=== PATIENT | male | born 2000 | race Caucasian/White ===

== ENCOUNTER 2023-12-17 22:00 | Emergency (ER) | payer MEDICAID, SELFPAY ==
[2023-12-17 22:05] VITALS: BP 141/85; PULSE 67; RESP 20; TEMP 36.1; O2SAT 95; BMI 29.0
--- NOTE | 2023-12-17 22:15 | CRLHL7_ITS ---
For Patients: As a result of the Century Cures Act, medical imaging exams and procedure reports are released immediately into your electronic medical record. You may view this report before your referring provider. If you have questions, please contact your health care provider. INDICATION: Left flank pain. TECHNIQUE: CT of the abdomen and pelvis without IV contrast. Coronal and sagittal reconstructions. COMPARISON: None. FINDINGS: The unenhanced liver, gallbladder, spleen, pancreas, and adrenal glands are normal in appearance. No biliary dilation. There is a 2 mm obstructing stone in the distal left ureter just above the ureterovesicular junction, with mild upstream left hydroureteronephrosis (series 2, image 144). No right hydronephrosis or ureteral dilation. Underdistended urinary bladder. A tiny calcification is noted along the anterior bladder wall. Nonenlarged prostate gland. No small bowel dilation. Mild amount of stool in the proximal colon. The distal colon is decompressed. Negative appendix. No intraperitoneal free air or fluid. No lymphadenopathy. The lung bases are clear. The bones are unremarkable. IMPRESSION: 2 mm obstructing stone in the distal left ureter with mild left hydroureteronephrosis. Please note that all CT scans at this facility use dose modulation, iterative reconstruction, and/or weight-based dosing when appropriate to reduce radiation dose to as low as reasonably achievable. Dictated by Yvette Lin MD @ 12/17/2023 11:23:19 PM (Electronically Signed)
--- NOTE | 2023-12-17 22:16 | ED_ITS ---
HPI - Abdominal Pain General Chief Complaint: Abdominal Pain Stated Complaint: left sided back pain Time Seen by Provider: 12/17/23 22:03 History of Present Illness HPI narrative: Patient is a 23-year-old gentleman who comes in today with left flank pain. The pain started this afternoon proximally 4-5 hours ago. It is located in the left CVA. He has had no dysuria no hematuria no nausea no vomiting no fevers no chills no chest pain no shortness of breath. He has had no similar symptoms previously. No other problems have been noted Related Data Previous Rx's ?Medication ?Instructions ?Recorded tamsulosin 0.4 mg capsule (Flomax) 0.4 mg PO DAILY #14 caps 12/17/23 Allergies Allergy/AdvReac Type Severity Reaction Status Date / Time No Known Drug Allergies Allergy Verified 12/17/23 22:09 Review of Systems Status of ROS Reports: 10 or more systems reviewed and unremarkable except as noted in History and below PFSH PFS Social History Smoking Status: Never smoker Do you use any of these nicotine containing products: None Second hand tobacco smoke exposure: No How often do you have a drink containing alcohol: monthly or less How many standard drinks containing alcohol do you have on a typical day: 1 or 2 How often do you have six or more drinks on one occasion: Never AUDIT-C Alcohol total score: 1 Non-prescribed substance use: denies use service: No Exam Narrative: Exam Narrative: EXAM GENERAL: Patient appears comfortable and well. EYES: No scleral icterus. LYMPH: No supraclavicular or cervical lymphadenopathy. SKIN: Visible skin seen during exam normal or with benign process only. EXT: No dependent lower extremity pedal edema. HEART: Regular rate and rhythm with no murmurs, rubs, or gallops. LUNGS: Clear to auscultation bilaterally with no crackles or wheezes. ABD: Soft, non tender, non distended. PSYCH: Good eye contact, speech is not pressured. Const: Vital Signs, click to edit/add: Vital Signs - 24 hr 12/17/23 22:05 12/17/23 23:19 Temperature 97 F L Pulse Rate [Pulse Oximeter] 67 81 Respiratory Rate 20 16 Blood Pressure [Ri ght Upper Arm] 141/85 H 130/85 Pulse Oximetry 95 100 Oxygen Delivery Me thod Room Air Room Air Course Course ED Course: Patient seen and examined. UA CBC basic metabolic panel CT abdomen pelvis ordered. Normal saline given Toradol given Zofran given. Vital Signs Vital signs: Initial Vital Signs Temperature 97 F L 12/17/23 22:05 Temperature Source Temporal Artery Scan 12/17/23 22:05 Pulse Rate 67 12/17/23 22:05 Respiratory Rate 20 12/17/23 22:05 Blood Pressure 141/85 H 12/17/23 22:05 Blood Pressure Mean 103 12/17/23 22:05 Blood Pressure Position Sitting 12/17/23 22:05 Pulse Oximetry 95 12/17/23 22:05 Oxygen Delivery Method Room Air 12/17/23 22:05 Vital Signs Temperature 97 F L 12/17/23 22:05 Pulse Rate 67 12/17/23 22:05 Respiratory Rate 20 12/17/23 22:05 Blood Pressure 141/85 H 12/17/23 22:05 Pulse Oximetry 95 12/17/23 22:05 Oxygen Delivery Method Room Air 12/17/23 22:05 Temperature 97 F L 12/17/23 22:05 Pulse Rate 81 12/17/23 23:19 Respiratory Rate 16 12/17/23 23:19 Blood Pressure 130/85 12/17/23 23:19 Pulse Oximetry 100 12/17/23 23:19 Oxygen Delivery Method Room Air 12/17/23 23:19 Medications Administered Medications: Generic Name Dose Route Start Last Admin Trade Name Freq PRN Reason Stop Dose Admin Hydromorphone HCl 0.5 mg 12/17/23 23:11 12/17/23 23:19 Hydromorphone 0.5 Mg/0.5 Ml Inj IVP 12/17/23 23:12 0.5 mg ONCE ONE Administration Ondansetron HCl 4 mg 12/17/23 22:15 12/17/23 22:37 Ondansetron 2 Mg/Ml Inj IVP 4 mg ONCE PRN Administration Discontinued Medications Generic Name Dose Route Start Last Admin Trade Name Freq PRN Reason Stop Dose Admin Sodium Chloride 1,000 mls @ 1,000 mls/hr 12/17/23 22:15 12/17/23 22:37 0.9 % Sodium Chloride 1000 Ml IV 12/17/23 23:14 1,000 mls/hr .Q1H GRANT Administration Ketorolac Tromethamine 30 mg 12/17/23 22:15 12/17/23 22:37 Ketorolac 30 Mg/Ml Inj IVP 12/17/23 22:16 30 mg ONCE ONE Administration MDM - Abdominal Pain MDM Narrative Medical decision making narrative: Patient is a 23-year-old gentleman who presents with left flank pain. Evaluation shows hematuria without signs of infection. He has 2 mm stone in the left ureter on CT scan no other acute abnormalities. He is treated with normal saline Zofran and Toradol and Dilaudid with resolution of his symptoms. He will be discharged home with oxycodone Zofran and Flomax to drink plenty fluids screen is urine and follow-up with his primary physician next week. Lab Data Labs: Lab Results 12/17/23 12/17/23 Range/Units 22:12 22:33 WBC 12.80 H (4.50-11.00) K/uL RBC 5.15 (4.30-5.90) m/uL Hgb 15.0 (13.5-17.5) gm/dL Hct 43.3 (37.0-53.0) % MCV 84 (80-100) fL MCH 29 (26-34) pg MCHC 35 (32-36) gm/dL RDW Coeff of Kamron 12.0 (11.5-15.5) % Plt Count 207 (140-440) K/uL Neut % (Auto) 77.1 H (42.0-72.0) % Lymph % (Auto) 15.1 L (20-44) % Sequoyah % (Auto) 6.3 (0.0-11.0) % Eos % (Auto) 0.5 (0.0-7.0) % Baso % (Auto) 0.2 (0.0-3.0) % Neut # (Auto) 9.90 H (1.7-7.0) K/uL Lymph # (Auto) 1.90 (0.90-2.90) K/uL Sequoyah # (Auto) 0.80 (0.00-0.90) K/UL Eos # (Auto) 0.10 (0.00-0.50) K/uL Baso # (Auto) 0.00 (0.00-0.30) K/uL Abs Immat Gran (auto) 0.10 (0.00-0.30) K/uL Imm/Tot Granulo (auto) 0.8 % Sodium 137 (135-149) mmol/L Potassium 3.4 L (3.6-5.1) mmol/L Chloride 104 (96-114) mmol/L Carbon Dioxide 21 (20-32) mmol/L Anion Gap 12 (7-15) mEq/L BUN 13 (5-24) mg/dL Creatinine 1.0 (0.5-1.5) mg/dL Estimated Creat Clear 127.62 Estimated GFR 107 ml/min Glucose 156 H (60-115) mg/dL Calcium 9.5 (8.4-10.6) mg/dL Urine Color Yellow (Yellow) Urine Appearance Clear (Clear) Urine pH 6.5 (5.0-8.5) Ur Specific [place] >= 1.030 (1.000-1.030) Urine Protein 1+ A (Negative) Urine Glucose (UA) Negative (Negative) Urine Ketones Trace A (Negative) Urine Blood 3+ A (Negative) Urine Nitrite Negative (Negative) Urine Bilirubin 1+ A (Negative) Urine Urobilinogen 0.2 (0.2-1.0) Ur Leukocyte Esterase Negative (Negative) Urine RBC 5-10 A (0-2) Urine WBC 2-5 (0-5) Ur Squamous Epith Cells Few (None-Few) Urine Bacteria Few A (None) Urine Yeast Few A (None) Discharge Plan Discharge Clinical Impression: Calculus of kidney Patient Disposition: Home, Self-Care Condition: Stable Instructions: Kidney Stones (ED) Additional Instructions: Strain urine Oxycodone Tylenol Rest Fluids Zofran for nausea Flomax as directed. Activity Level: No Restrictions Discharge Diet: Regular Prescriptions: New tamsulosin [Flomax] 0.4 mg capsule 0.4 mg PO DAILY Qty: 14 3RF Follow Up/Referrals: Kai Josue MD [Primary Care Provider] - Stand Alone Forms: MyHealth Info Instructions
[2023-12-17 22:36] LABS: Appearance Urine Clear (Clear); Bilirubin Urine 1+ (Negative); Blood Urine 3+ (Negative); Color Urine Yellow (Yellow); Glucose Urine Negative (Negative); Ketones Urine Trace (Negative); Leukocyte Esterase Urine Negative (Negative); Nitrite Urine Negative (Negative); Protein Urine 1+ (Negative); Specific Gravity Urine >= 1.030 (1.000-1.030); Urobilinogen Urine 0.2 (0.2-1.0); pH Urine 6.5 (5.0-8.5)
[2023-12-17] MEDS: 0.9 % SODIUM CHLORIDE 1000 ml 1,000 ML IV (22:37)
[2023-12-17] MEDS: KETOROLAC 30 MG/ML inj IVP (22:37)
[2023-12-17] MEDS: ONDANSETRON 2 MG/ML inj 4 MG IVP (22:37)
[2023-12-17 22:41] LABS: Basophils Percent Auto 0.2 % (0.0-3.0); Eosinophils Percent Auto 0.5 % (0.0-7.0); Hematocrit 43.3 % (37.0-53.0); Immature Granulocytes Pct Auto 0.8 %; Lymphocytes Percent Auto 15.1 % (20-44); Mean Corpuscular HGB Conc 35 gm/dL (32-36); Mean Corpuscular Hemoglobin 29 pg (26-34); Mean Corpuscular Volume 84 fL (80-100); Monocytes Percent Auto 6.3 % (0.0-11.0); Neutrophils Percent Auto 77.1 % (42.0-72.0); Platelet Count* 207 K/uL (140-440); Red Blood Count 5.15 m/uL (4.30-5.90)
[2023-12-17 22:51] LABS: Slide Review Reflex No
[2023-12-17 22:56] LABS: Chloride* 104 mmol/L (96-114)
[2023-12-17 22:57] LABS: Potassium* 3.4 mmol/L (3.6-5.1); Sodium* 137 mmol/L (135-149)
[2023-12-17 22:59] LABS: Est. Creatinine Clearance* 127.62; Estimated Glomerular Filt Rate 107 ml/min
[2023-12-17 23:00] LABS: Anion Gap 12 mEq/L (7-15); Blood Urea Nitrogen* 13 mg/dL (5-24); Calcium* 9.5 mg/dL (8.4-10.6); Carbon Dioxide* 21 mmol/L (20-32); Glucose* 156 mg/dL (60-115)
[2023-12-17 23:02] LABS: Bacteria Urine Few; Squamous Epithelial Cell Urine Few (None-Few)
[2023-12-17 23:19] VITALS: BP 130/85; PULSE 81; RESP 16; O2SAT 100
[2023-12-17] MEDS: HYDROmorphone 0.5 mg/0.5 ml inj IVP (23:19)
== END 2023-12-17 23:51 | disposition home or self-care (01) ==
PROVIDERS: Emergency Provider Internal Medicine; PCP Family Medicine
DX: N20.0 Calculus of kidney (principal)
CPT/HCPCS: 36415; 74176; 80048; 81001; 81003; 85025; 87086; 96374; 96375; 99283; 99284; J1170; J1885; J2405; J7030

== ENCOUNTER 2024-11-14 09:26 | Emergency (ER) | payer BC, SELFPAY ==
--- OUTSIDE RECORDS SUMMARY | 2024-11-14 09:28 | XMS_ITS | Clinical Summary ---
Author Organization [facility] Address [address] [place] [id number] Care Team Providers Care Visiting Professor Name Role Phone Kai Josue MD Primary Care Provider [phone] Allergies No known active allergies Medications No known medications Active Problems Problem Noted Date Diagnosed Date Genu valgum 07/01/2010 DERMATITIS, OTHER ATOPIC Immunizations Immunization Administration Dates Next Due DTP 1998,1998 DTaP 05/26/2003,09/02/1999,1998 HIB-HepB (Comvax) 06/06/1999,1998,07/18/18 99 Hepatitis A (Peds) 01/02/2017,04/20/2012 Inactivated Polio Vaccine 02/05/2004,,1998,07/18 Influenza,LAIV4 Live Intrana millicent (Flumist) 03/31/2009 MENINGOCOCCAL VACCINE 2 VIAL [id number] (MENVEO) 01/02/2017,04/20/2012 MMR 05/26/2003,09/02/1999 Tdap 03/11/2024,01/31/2011 Varicella Vaccine 06/06/1999 Family History Medical History Relation Name Comments Good Health Brother Good Health Father Good Health Mother Genetic Other negative Relation Name Status Comments Brother Father Mother Other Social History Tobacco Use Types Packs/Day Years Used Date Smoking Tobacco: Never Smokeless Tobacco: Never Tobacco Cessation:Counseling Given: No Alcohol Use Standard Drinks/Week Comments Not Currently 0 (1 standard drink = 0.6 oz pur e alcohol) 5 times per year Social Connections Answer Date Recorded Do you often feel lonely or isolated from those around you? 0 03/11/2024 Alcohol Use Answer Date Recorded How often do you have a drink containing alcohol ? 1 03/11/2024 How many drinks containing a lcohol do you have on a typical day when you are drinking? 0 03/11/2024 How often do you have five or more drinks on one occasion? 0 03/11/2024 Financial Resource Strain Answer Date R ecorded Difficulty of Paying Living Expenses 2 03/11/2024 Difficulty of Paying Living Expenses 1 03/11/2024 Food Insecurity Answer Date Recorded Do you worry your food will run out before you are able to buy more? 1 03/11/2024 Transportation Needs Answer Date Record ed Does lack of transportation keep you from medica l appointments? 1 03/11/2024 Does lack of transportation keep you from work, meetings or getting things that you need? 1 03/11/2024 Housing Stability Answer Date Recorded What is your housing situation today? 1 03/11/2024 Utilities Answer Date Recorded Do you have trouble paying f or utilities (for example, heat, electricity, water, phone)? 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 Not on file Not on f ile Obstetrics History Last Filed Vital Signs Vital Sign Reading Time Taken Comments Blood Pressure 119/75 03/11/2024 8:51 AM CDT Pulse 66 03/11/2024 8:51 AM CDT Temperature 36.1 C (97 F) 03/11/2024 8:51 AM CDT Respiratory Rate 16 2002 12:00 AM TRADE MANAGER Oxygen Saturation 98% 03/11/2024 8:51 AM CDT Inhaled Oxygen Concentration - - Weight 97.8 kg (215 lb 9.6 oz) 03/11/2024 8:51 A M CDT Height 183.6 cm (6' 0.28) 03/11/2024 8:51 AM CD T Body Mass Index 29.01 03/11/2024 8:51 AM CDT Plan of Treatment Health Maintenance Due Date Last Done Comments HPV series for age 9-26 (1 - 3-dose series) 2013 HPV series for age 9-26 (1 - 3-dose series) 2013 Depression screening for age 12+ 01/02/2018 01/02/2017, 06/16/2016 Pap test for age 21-65 2019 COVID-19 vaccine series ( season) 2024 Influenza Vaccine (Season Ended) 2025 03/31/2009 BMI (ht and wt on same day) for age 18+ 03/11/2025 03/11/2024, 01/02/2017, 06/16/2016 Tetanus booster 03/11/2034 03/11/2024, 01/31/2011 Hepatitis B series for 19+ Completed 06/06, 1998, 1998 HIV for age 15-65 Completed 03/11/2024 Hepatitis C screening for ag e 18-79 Completed 03/11/2024 Tdap Completed 03/11/2024, 01/31/2011 Pneumococcal series for age 6-49 Aged Out No longer eligible b ased on patient's age to complete this topic Procedures Procedure Name Priority Date/Time Associated Diagnosis Comments HIV 1/2 ANTIGEN/ANTIBODY FOURTH GENERATION W/RFL ([facility]) Routine 03/11/2024 10:03 AM CDT Encounter for screening for HIV ANTI HCV Routine 03/11/2024 10:03 AM CDT Need for hepatitis C screening test from Last 3 Months or Most Recently Relevant to Health Maintenance Results * HIV 1/2 AG/AB 4TH GEN W/RFL ([facility]) (03/11/2024 10:03 AM CDT) HIV AG/AB, 4TH GEN NON-REACT OSBALDO NON-REACT [facility] Comment: HIV-1 antigen and HIV-1/HIV-2 antibodies were not detected. There is no laboratory evidence of HIV infection. PLEASE NOTE: This information has been disclosed to you from records whose confidentiality may be protected by state law. If your state requires such protection, then the state law prohibits you from making any further disclosure of the information without the specific written consent of the person to whom it pertains, or as otherwise permitted by law. A general authorization for the release of medical or other information is NOT sufficient for this purpose. For additional information please refer to http://Staples.Patients Know Best/faq/VIR375 (This link is being provided for informational/ educational purposes only.) The performance of this assay has not been clinically validated in patients less than 2 years old. Blood BLOOD SPECIMEN / Unknown 03/11/2024 10:03 AM CDT 03/11/2024 10:04 AM CDT Kai Josue MD SEND OUTS Final Resu lt Performing Organization Address [facility]/ZIP Co de Phone Number [facility] [address] [place] [address], [place] [phone] [facility] [address] [place] [address] * ANTI HCV (03/11/2024 10:03 AM CDT) HEPATITIS C ANTIBODY NON-REACTI VE NON-REACT OSBALDO [facility] Comment: HCV antibody was non-reactive. There is no laboratory evidence of HCV infection. In most cases, no further action is required. However, if recent HCV exposure is suspected, a test for HCV RNA (test code 22037) is suggested. For additional information please refer to http://Staples.Patients Know Best/faq/OJK14v1 (This link is being provided for informational/ educational purposes only.) Blood BLOOD SPECIMEN / Unknown 03/11/2024 10:03 AM CDT 03/11/2024 10:04 AM CDT Kai Josue MD SEND OUTS Final Resu lt Performing Organization Address [facility]/ZIP Co de Phone Number [facility] [address] [place] [address], [place] [phone] [facility] [address] [facility] [place] [address] from Last 3 Months or Most Recently Relevant to Health Maintenance Insurance [facility] [place] Care Teams Visiting Professor Relationship Specialty Start Date End Date Kai Jos[place] [address] PCP - General 04/12/07
[2024-11-14 09:33] VITALS: BP 128/75; PULSE 58; RESP 16; TEMP 35.7; O2SAT 98; BMI 26.9
[2024-11-14] MEDS: KETOROLAC 15 MG/ML inj IVP (10:00)
[2024-11-14] MEDS: ONDANSETRON 2 MG/ML inj 4 MG IVP (10:00)
[2024-11-14 10:02] LABS: Appearance Urine Cloudy (Clear); Bilirubin Urine 1+ (Negative); Blood Urine 3+ (Negative); Color Urine Orange (Yellow); Glucose Urine Negative (Negative); Ketones Urine Trace (Negative); Leukocyte Esterase Urine Negative (Negative); Nitrite Urine Negative (Negative); Protein Urine 2+ (Negative); Specific Gravity Urine >= 1.030 (1.000-1.030); Urobilinogen Urine 0.2 (0.2-1.0)
--- NOTE | 2024-11-14 10:04 | ED_ITS ---
HPI - General Adult General Chief complaint: Flank Pain Stated complaint: R flank pain, possible kidney stone Time Seen by Provider: 11/14/24 10:04 History of Present Illness HPI narrative: Pt reports hx of kidney stone last year. About 1 week ago, developed low right back pain. Pain has substantially worsened this AM, also noticed blood in urine today. Pt reports he has had 2 syncopal episodes this AM, and nausea. Pain currently 8/10. 24-year-old young man presenting to the emergency depart with concern of right flank pain. 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 It really escalated than today. He has also noted hematuria. No fever. Does have a history of kidney stone apparently about a year ago. Did have a couple episodes of syncope here now it sounds like as his pain increased. He did pass out also with the last 1. There is a family history of kidney stones. Initially he thought maybe just had tweaked his back in his job but that does not appear to be a case any longer. Has been experiencing nausea. By the time I am seeing him has received ketorolac and Zofran. Would really like little water. Denies cardiac history otherwise. Related Data Previous Rx's ?Medication ?Instructions ?Recorded tamsulosin 0.4 mg capsule (Flomax) 0.4 mg PO DAILY #15 caps 11/14/24 Allergies Allergy/AdvReac Type Severity Reaction Status Date / Time No Known Drug Allergies Allergy Verified 12/17/23 22:09 Review of Systems Status of ROS: Reports: 6 or more systems reviewed and unremarkable except as noted in History and below PFSH PFSH Social History Smoking Status: Never smoker Do you use any of these nicotine containing products: None Second hand tobacco smoke exposure: No How often do you have a drink containing alcohol: monthly or less How many standard drinks containing alcohol do you have on a typical day: 1 or 2 How often do you have six or more drinks on one occasion: Never AUDIT-C Alcohol total score: 1 Non-prescribed substance use: denies use service: No Exam Narrative: Exam Narrative: Standing in the bed when I enter the room. IV in the right arm. Is breathing easily. Seems little uncomfortable maybe a little pale. Heart in but regular rate and rhythm. Lungs appear clear. Abdomen is soft and nontender until some tenderness to percussion of the right flank actually deeper back even more paraspinal. Well-perfused peripherally without edema. Const: Vital Signs, click to edit/add: Vital Signs - 24 hr 11/14/24 09:33 11/14/24 11:00 Temperature 96.3 F L Pulse Rate [Pulse Oximeter] 58 L 52 L Respiratory Rate 16 16 Blood Pressure [Ri ght Upper Arm] 128/75 109/60 Pulse Oximetry 98 93 Oxygen Delivery Me thod Room Air Room Air Documenting provider has reviewed patient's vital signs: yes Course Vital Signs Vital signs: Initial Vital Signs Temperature 96.3 F L 11/14/24 09:33 Temperature Source Axillary 11/14/24 09:33 Pulse Rate 58 L 11/14/24 09:33 Respiratory Rate 16 11/14/24 09:33 Blood Pressure 128/75 11/14/24 09:33 Blood Pressure Mean 92 11/14/24 09:33 Blood Pressure Position Sitting 11/14/24 09:33 Pulse Oximetry 98 11/14/24 09:33 Oxygen Delivery Method Room Air 11/14/24 09:33 Vital Signs Temperature 96.3 F L 11/14/24 09:33 Pulse Rate 58 L 11/14/24 09:33 Respiratory Rate 16 11/14/24 09:33 Blood Pressure 128/75 11/14/24 09:33 Pulse Oximetry 98 11/14/24 09:33 Oxygen Delivery Method Room Air 11/14/24 09:33 Temperature 96.3 F L 11/14/24 09:33 Pulse Rate 52 L 11/14/24 11:00 Respiratory Rate 16 11/14/24 11:00 Blood Pressure 109/60 11/14/24 11:00 Pulse Oximetry 93 11/14/24 11:00 Oxygen Delivery Method Room Air 11/14/24 11:00 Medications Administered Medications: Discontinued Medications Generic Name Dose Route Start Last Admin Trade Name Freq PRN Reason Stop Dose Admin Hydromorphone HCl 0.5 mg 11/14/24 10:38 11/14/24 10:43 Hydromorphone 0.5 Mg/0.5 Ml Inj IVP 11/14/24 10:39 0.5 mg ONCE ONE Administration Hyoscyamine 0.25 mg 11/14/24 10:38 11/14/24 10:43 Hyoscyamine Sulfate 0.125 Mg Tab SUBLINGUAL 11/14/24 10:39 0.25 mg ONCE ONE Administration Sodium Chloride 1,000 mls @ 1,000 mls/hr 11/14/24 10:15 11/14/24 11:04 0.9 % Sodium Chloride 1000 Ml IV 11/14/24 11:14 Infused .Q1H ONE Infusion Ketorolac Tromethamine 15 mg 11/14/24 11:01 11/14/24 10:00 Ketorolac 15 Mg/Ml Inj IVP 11/14/24 11:02 15 mg ONCE ONE Administration Morphine Sulfate 4 mg 11/14/24 10:15 11/14/24 10:21 Morphine 4 Mg/Ml Inj IVP 11/14/24 10:16 4 mg ONCE ONE Administration Ondansetron HCl 4 mg 11/14/24 11:01 11/14/24 10:00 Ondansetron 2 Mg/Ml Inj IVP 11/14/24 11:02 4 mg ONCE ONE Administration Tamsulosin HCl 0.4 mg 11/14/24 11:26 11/14/24 11:34 Tamsulosin Hcl 0.4 Mg Capsule PO 11/14/24 11:27 0.4 mg ONCE ONE Administration Medical Decision Making MDM Narrative Medical decision making narrative: Considering syncope EKG is early been done by the time in seeing Mr. Bejarano. Independent reviewed by me shows a sinus bradycardia rate of 57. No ischemic changes. No delta wave. No Q-waves. Does really sound to have nephrolithiasis. We discussed and I would do imaging but if this is been going on for week perhaps would be prudent to do so. They would like to proceed with imaging. Labs also be collected. I will also order for morphine for more immediate pain relief. CT scan noncontrast CT of abdomen pelvis independently reviewed by me shows a small passable stone in the low/distal right ureter. I think this is consistent with his pain. Radiology over-read then also noting 1 mm stone in the bladder. INDICATION: .Right flank pain, hematuria TECHNIQUE: CT abdomen and pelvis without contrast. COMPARISON: None. FINDINGS: Lower chest: The visualized lower lungs are aerated. No pleural or pericardial effusion. ABDOMEN: Liver: Normal attenuation. Gallbladder and biliary: Normal gallbladder without radiopaque stone. Normal caliber bile ducts. Spleen: Normal size and attenuation. Pancreas: The noncontrast pancreas is homogeneous in attenuation without peripancreatic inflammatory changes or ductal dilatation. Adrenal glands: Normal adrenal glands. Kidneys and ureters: Mild right-sided hydroureteronephrosis secondary to a 2 millimeters stone in the distal right ureter. No left-sided hydroureteronephrosis. GI tract: The stomach is relatively decompressed. Normal caliber small and large bowel loops. Normal appendix. Vascular structures: Normal caliber abdominal aorta. Lymph nodes: No lymphadenopathy in the abdomen or pelvis by size criteria. Peritoneum: No free air, free fluid, or focal drainable fluid collection. PELVIS: Genitourinary system: Urinary bladder is decompressed. However there is a 1 millimeter tiny stone within decompressed urinary bladder fundus. SKELETAL STRUCTURES AND SOFT TISSUES: Tiny sclerotic focus in the right femoral head, statistically a bone island. IMPRESSION: Mild right-sided hydroureteronephrosis secondary to a 2 millimeters stone in the distal right ureter. Please note that all CT scans at this facility use dose modulation, iterative reconstruction, and/or weight-based dosing when appropriate to reduce radiation dose to as low as reasonably achievable. Dictated by Jai Barry MD @ 11/14/2024 11:15:40 AM Pain history consistent with probably passing initially this smaller stone and now with this new 2 mm stone. Labs are reassuring otherwise. Another flare of pain is given a dose of Dilaudid and hyoscyamine. Once stone confirmed on CT imaging also given tamsulosin. Does note that tamsulosin/Flomax was helpful in the past. Overall improved during time in the emergency department. See patient discharge plan for further discussion Consider straining your urine over this next week though since you have already had stone analysis, maybe is less important. Prescribing Flomax would like to take daily until relatively certain of stone passage/resolution. Be seen for uncontrolled pain, pain lasting another 4 or 5 days, fever, intractable vomiting. Can take up to 800 mg of ibuprofen per dose. Prescribing some Percocet and Zofran from [facility]. Otherwise sending in some Flomax to pharmacy Medical Records Medical records reviewed: Yes I reviewed the patient's medical records Lab Data Lab results reviewed: Yes I reviewed the patient's lab results Labs: Lab Results 11/14/24 11/14/24 Range/Units 09:49 09:55 WBC 8.42 (4.50-11.00) K/uL RBC 5.20 (4.30-5.90) m/uL Hgb 15.2 (13.5-17.5) gm/dL Hct 44.5 (37.0-53.0) % MCV 86 (80-100) fL MCH 29 (26-34) pg MCHC 34 (32-36) gm/dL RDW Coeff of [place] 12.0 (11.5-15.5) % Plt Count 259 (140-440) K/uL Neut % (Auto) 45.7 (42.0-72.0) % Lymph % (Auto) 40.7 (20-44) % [place] % (Auto) 10.8 (0.0-11.0) % Eos % (Auto) 2.1 (0.0-7.0) % Baso % (Auto) 0.5 (0.0-3.0) % Neut # (Auto) 3.84 (1.7-7.0) K/uL Lymph # (Auto) 3.43 H (0.90-2.90) K/uL [place] # (Auto) 0.90 (0.00-0.90) K/UL Eos # (Auto) 0.18 (0.00-0.50) K/uL Baso # (Auto) 0.04 (0.00-0.30) K/uL Abs Immat Gran (auto) 0.02 (0.00-0.30) K/uL Imm/Tot Granulo (auto) 0.2 % Sodium 141 (135-149) mmol/L Potassium 3.2 L (3.6-5.1) mmol/L Chloride 103 (96-114) mmol/L Carbon Dioxide 26 (20-32) mmol/L Anion Gap 12 (7-15) mEq/L BUN 17 (5-24) mg/dL Creatinine 0.9 (0.5-1.5) mg/dL Estimated Creat Clear 140.56 Estimated GFR 121 ml/min Glucose 124 H (60-115) mg/dL Calcium 9.3 (8.4-10.6) mg/dL Urine Color [place] A (Yellow) Urine Appearance Cloudy A (Clear) Urine pH 6.0 (5.0-8.5) Ur Specific [place] >= 1.030 (1.000-1.030) Urine Protein 2+ A (Negative) Urine Glucose (UA) Negative (Negative) Urine Ketones Trace A (Negative) Urine Blood 3+ A (Negative) Urine Nitrite Negative (Negative) Urine Bilirubin 1+ A (Negative) Urine Urobilinogen 0.2 (0.2-1.0) Ur Leukocyte Esterase Negative (Negative) Urine RBC >100 A (0-2) Urine WBC 2-5 (0-5) Ur Squamous Epith Cells Few (None-Few) Urine Bacteria None (None) Urine Mucus Moderate A (None) ECG Data Attestation: I personally reviewed and interpreted this ECG as follows: (Sinus bradycardia. Rate of 57. No Q-waves. no delta wave.) Discharge Plan Discharge Clinical Impression: Ureteral calculus, Ureteral colic Patient Disposition: Home w/ Parent or Adult Condition: Improved Additional Instructions: Consider straining your urine over this next week though since you have already had stone analysis, maybe is less important. Prescribing Flomax would like to take daily until relatively certain of stone passage/resolution. Be seen for uncontrolled pain, pain lasting another 4 or 5 days, fever, intractable vomiting. Can take up to 800 mg of ibuprofen per dose. Prescribing some Percocet and Zofran from [facility]. Otherwise sending in some Flomax to pharmacy Prescriptions: New tamsulosin [Flomax] 0.4 mg capsule 0.4 mg PO DAILY Qty: 15 1RF Follow Up/Referrals: Kai Josue MD [Primary Care Provider, Family Practice] Stand Alone Forms: [facility] Info Instructions
[2024-11-14 10:08] LABS: Basophils Absolute Auto 0.04 K/uL (0.00-0.30); Basophils Percent Auto 0.5 % (0.0-3.0); Eosinophils Absolute Auto 0.18 K/uL (0.00-0.50); Eosinophils Percent Auto 2.1 % (0.0-7.0); Hematocrit 44.5 % (37.0-53.0); Hemoglobin* 15.2 gm/dL (13.5-17.5); Immature Granulocytes Abs Auto 0.02 K/uL (0.00-0.30); Immature Granulocytes Pct Auto 0.2 %; Lymphocytes Absolute Auto 3.43 K/uL (0.90-2.90); Lymphocytes Percent Auto 40.7 % (20-44); Mean Corpuscular HGB Conc 34 gm/dL (32-36); Mean Corpuscular Hemoglobin 29 pg (26-34); Mean Corpuscular Volume 86 fL (80-100); Monocytes Percent Auto 10.8 % (0.0-11.0); Neutrophils Absolute Auto 3.84 K/uL (1.7-7.0); Neutrophils Percent Auto 45.7 % (42.0-72.0); Platelet Count* 259 K/uL (140-440); White Blood Count* 8.42 K/uL (4.50-11.00)
[2024-11-14 10:09] LABS: Slide Review Reflex No
[2024-11-14 10:16] LABS: Mucus Urine Moderate; RBC Urine >100 (0-2); Squamous Epithelial Cell Urine Few (None-Few)
[2024-11-14] MEDS: 0.9 % SODIUM CHLORIDE 1000 ml 1,000 ML IV (10:20)
[2024-11-14] MEDS: MORPHINE 4 MG/ML INJ IVP (10:21)
[2024-11-14 10:22] LABS: Chloride* 103 mmol/L (96-114)
[2024-11-14 10:23] LABS: Potassium* 3.2 mmol/L (3.6-5.1); Sodium* 141 mmol/L (135-149)
[2024-11-14 10:25] LABS: Blood Urea Nitrogen* 17 mg/dL (5-24); Creatinine* 0.9 mg/dL (0.5-1.5); Est. Creatinine Clearance* 140.56; Estimated Glomerular Filt Rate 121 ml/min
[2024-11-14 10:26] LABS: Anion Gap 12 mEq/L (7-15); Calcium* 9.3 mg/dL (8.4-10.6); Carbon Dioxide* 26 mmol/L (20-32); Glucose* 124 mg/dL (60-115)
--- NOTE | 2024-11-14 10:26 | CRLHL7_ITS ---
For Patients: As a result of the Century Cures Act, medical imaging exams and procedure reports are released immediately into your electronic medical record. You may view this report before your referring provider. If you have questions, please contact your health care provider. INDICATION: .Right flank pain, hematuria TECHNIQUE: CT abdomen and pelvis without contrast. COMPARISON: None. FINDINGS: Lower chest: The visualized lower lungs are aerated. No pleural or pericardial effusion. ABDOMEN: Liver: Normal attenuation. Gallbladder and biliary: Normal gallbladder without radiopaque stone. Normal caliber bile ducts. Spleen: Normal size and attenuation. Pancreas: The noncontrast pancreas is homogeneous in attenuation without peripancreatic inflammatory changes or ductal dilatation. Adrenal glands: Normal adrenal glands. Kidneys and ureters: Mild right-sided hydroureteronephrosis secondary to a 2 millimeters stone in the distal right ureter. No left-sided hydroureteronephrosis. GI tract: The stomach is relatively decompressed. Normal caliber small and large bowel loops. Normal appendix. Vascular structures: Normal caliber abdominal aorta. Lymph nodes: No lymphadenopathy in the abdomen or pelvis by size criteria. Peritoneum: No free air, free fluid, or focal drainable fluid collection. PELVIS: Genitourinary system: Urinary bladder is decompressed. However there is a 1 millimeter tiny stone within decompressed urinary bladder fundus. SKELETAL STRUCTURES AND SOFT TISSUES: Tiny sclerotic focus in the right femoral head, statistically a bone island. IMPRESSION: Mild right-sided hydroureteronephrosis secondary to a 2 millimeters stone in the distal right ureter. Please note that all CT scans at this facility use dose modulation, iterative reconstruction, and/or weight-based dosing when appropriate to reduce radiation dose to as low as reasonably achievable. Dictated by Jai Barry MD @ 11/14/2024 11:15:40 AM (Electronically Signed)
[2024-11-14] MEDS: HYDROmorphone 0.5 mg/0.5 ml inj IVP (10:43)
[2024-11-14] MEDS: HYOSCYAMINE SULFATE 0.125 MG TAB 0.25 MG SUBLINGUAL (10:43)
[2024-11-14 11:00] VITALS: BP 109/60; PULSE 52; RESP 16; O2SAT 93
[2024-11-14] MEDS: TAMSULOSIN HCL 0.4 MG CAPSULE PO (11:34)
== END 2024-11-14 11:42 | disposition home or self-care (01) ==
PROVIDERS: Emergency Provider Family Medicine; PCP Family Medicine
DX: N13.2 Hydronephrosis with renal and ureteral calculous obstruction (principal)
CPT/HCPCS: 36415; 74176; 80048; 81001; 85025; 93005; 96374; 96375; 99284; A9270; J1171; J1885; J2270; J2405; J7030